=== PATIENT | male | born 1980 | race Caucasian/White ===

== ENCOUNTER → 2018-10-22 | Outpatient (CLI) | payer OTHER ==
[~2018-10-22] MED LIST: CEPH500 PO; CYCL10 PO; HYDACE5 PO; IBUP800 PO; NAPR550 PO; PROM25 PO
== END | disposition home or self-care (01) ==
LOC: LAB SHORT 18:14 → LAB EV 18:14
DX: L02.416 Cutaneous abscess of left lower limb (principal)
CPT/HCPCS: 87070; 87075; 87077; 87147; 87186; 87205